=== PATIENT | male | born 1980 | race Caucasian/White ===

== ENCOUNTER 2022-10-08 08:01 | Emergency (ER) | payer BC ==
[2022-10-08] MEDS ORDERED: Sodium Chloride 0.9% 2.5 ML Syringe FLUSH PRN (08:28)
[2022-10-08] MEDS ORDERED: Metoclopramide 10 MG/2 ML SDV IVPUSH ONE (08:28)
[2022-10-08] MEDS ORDERED: Acetaminophen 325 MG Tab PO ONE (08:28)
[2022-10-08] MEDS ORDERED: Sodium Chloride 0.9% 10 ML Syringe FLUSH PRN (08:28)
[2022-10-08] MEDS ORDERED: diphenhydrAMINE 50 MG/ML SDV IVPUSH ONE (08:28)
[2022-10-08 09:00] LABS: BLOOD UREA NITROGEN,BUN 22 mg/dL (7.0-18.0); CHLORIDE,CL 104 mmol/L (98-107); GLUCOSE RANDOM 119 mg/dL (74-106); POTASSIUM,K 3.6 mmol/L (3.5-5.1); SODIUM,NA 139 mmol/L (136-148)
[2022-10-08 09:03] LABS: ESTIMATED GFR 111 mL/min (>60)
[2022-10-08 09:26] LABS: CORONAVIRUS COVID-19 NAA NEGATIVE (NEGATIVE); INFLUENZA A NAA NEGATIVE (NEGATIVE); INFLUENZA B NAA NEGATIVE (NEGATIVE); RESPIRATORY SYNCYTIAL VIR NAA NEGATIVE (NEGATIVE)
[2022-10-08] MEDS ORDERED: Morphine 4 MG/ML Syringe IVPUSH ONE (10:01)
== END 2022-10-08 13:22 ==
LOC: MW.ED 08:01
DX: S06.5XAA Traumatic subdural hemorrhage with loss of consciousness status unknown, initial encounter (principal); Z91.013 Allergy to seafood; Z90.81 Acquired absence of spleen; Z20.822 Contact with and (suspected) exposure to COVID-19; W22.8XXA Striking against or struck by other objects, initial encounter; Y93.71 Activity, boxing
CPT/HCPCS: 0241U; 36415; 70250; 70360; 70450; 71046; 74019; 80053; 85025; 85610; 85730; 96374; 96375; 99291; 99292; A9270; J1200; J2270; J2765; J3490

== ENCOUNTER 2023-08-21 10:01 | Emergency (ER) | payer BC | END 2023-08-21 11:29 | disposition home or self-care (01) | LOC: MW.ED 10:01 | DX: R20.2 Paresthesia of skin (principal) | CPT/HCPCS: 70250; 70250-26; 70360; 70450; 70450-26; 71046; 74019; 99282; 99284 ==

== ENCOUNTER 2023-11-18 17:21 | Emergency (ER) | payer BC ==
[2023-11-18] MEDS: Sodium Chloride 0.9% 500 ML IV SCH (18:11)
[2023-11-18] MEDS: Sodium Chloride 0.9% 2.5 ML Syringe FLUSH PRN (18:13)
[2023-11-18] MEDS: Sodium Chloride 0.9% 10 ML Syringe FLUSH PRN (18:13)
[2023-11-18 18:15] LABS: BASOPHILS ABSOLUTE AUTO 0.12 K/uL (0.00-0.20); BASOPHILS PERCENT AUTO 0.9 % (0.0-1.0); EOSINOPHILS ABSOLUTE AUTO 0.06 K/uL (0.00-0.45); EOSINOPHILS PERCENT AUTO 0.4 % (0.0-6.0); HEMATOCRIT 39.7 % (42.0-52.0); HEMOGLOBIN 13.9 g/dL (14.0-18.0); IMMATURE GRAN ABSOLUTE AUTO 0.05 K/uL (0.00-0.05); IMMATURE GRAN PERCENT AUTO 0.4 % (0.0-0.4); LYMPHOCYTES ABSOLUTE AUTO 1.25 K/uL (1.00-4.80); MEAN CORPUSCULAR HEMOGLOBIN 31.8 pg (28.0-32.0); MEAN CORPUSCULAR VOLUME 90.8 fL (83.0-99.0); MEAN PLATELET VOLUME 9.2 fL (9.4-12.4); MONOCYTES ABSOLUTE AUTO 1.16 K/uL (0.00-0.80); MONOCYTES PERCENT AUTO 8.4 % (0.0-8.0); NEUTROPHILS ABSOLUTE AUTO 11.23 K/uL (1.80-7.70); NEUTROPHILS PERCENT AUTO 80.9 % (41.0-71.0); PLATELET COUNT,PLT 369 K/uL (150-400); RED BLOOD CELL COUNT 4.37 M/uL (4.52-5.90); WHITE BLOOD CELL COUNT,WBC 13.87 K/uL (3.9-11.3)
[2023-11-18 18:50] LABS: ALBUMIN 3.9 g/dL (3.4-5.0); BILIRUBIN TOTAL 0.4 mg/dL (0.2-1.0); CALCIUM 9.3 mg/dL (8.5-10.1); CREATININE 1.2 mg/dL (0.8-1.3); EST CRCL DRUG DOSING (CG) 78.38 mL/min; MAGNESIUM 2.2 mg/dL (1.8-2.4); POTASSIUM,K 3.8 mmol/L (3.5-5.1)
[2023-11-18 19:48] LABS: AMPHETAMINES SCREEN, URINE NEGATIVE (CUTOFF=500); BARBITURATE SCREEN,URINE NEGATIVE (CUTOFF=200); BENZODIAZEPINES SCREEN,URINE NEGATIVE (CUTOFF=150); BUPRENORPHINE SCREEN,URINE NEGATIVE (CUTOFF=10); METHADONE SCREEN, URINE NEGATIVE (CUTOFF=200); METHAMPHETAMINES SCREEN, URINE NEGATIVE (CUTOFF=500); OXYCODONE SCREEN,URINE NEGATIVE (CUT0FF=100); PCP SCREEN,URINE NEGATIVE (CUTOFF=25); THC SCREEN,URINE 20 NG/ML PRESUMPTIVE POSITIVE (CUTOFF=50)
[2023-11-21 22:02] LABS: KEPPRA 29 ug/mL (10-40)
== END 2023-11-18 21:57 | disposition home or self-care (01) ==
LOC: MW.ED 17:21
DX: R56.9 Unspecified convulsions (principal); Z87.820 Personal history of traumatic brain injury; Z98.2 Presence of cerebrospinal fluid drainage device; Z91.013 Allergy to seafood; Z79.899 Other long term (current) drug therapy
CPT/HCPCS: 36415; 70450; 80053; 80177; 80305; 82550; 82947; 83735; 84484; 85025; 93005; 96365; 96376; 99284; J1953; J3490; J7040; J7060; 93010; 99283

== ENCOUNTER 2024-04-23 14:49 | Emergency (ER) | payer MEDICAID | END 2024-04-23 17:03 | disposition home or self-care (01) | LOC: MW.ED 14:49 | DX: S52.501A Unspecified fracture of the lower end of right radius, initial encounter for closed fracture (principal); Z79.899 Other long term (current) drug therapy; Z91.013 Allergy to seafood; W18.01XA Striking against sports equipment with subsequent fall, initial encounter; Y93.B3 Activity, free weights | CPT/HCPCS: 29105; 73090-26-RT; 73090-RT; 73110-26-RT; 73110-RT; 99283; 99283-25 ==

== ENCOUNTER 2024-05-05 08:32 | Day surgery (SDC) | payer MEDICAID ==
[~2024-05-05 08:32] MED LIST: ceFAZolin 2 GM in Sodium Chloride 0.9% 50 ML IV ONE
[2024-05-05] MEDS ORDERED: Midazolam 1 MG/ML 2 ML SDV ONE (09:27)
[2024-05-05] MEDS ORDERED: Ropivacaine 0.5% 5 MG/ML 30 ML SDV ONE (09:37)
[2024-05-05] MEDS ORDERED: dexmedeTOMIDine HCl 200 MCG/2 ML SDV ONE (09:39)
[2024-05-05] MEDS: Lactated Ringers 1,000 ML IV SCH (09:44)
[2024-05-05] MEDS ORDERED: Bupivacaine 0.25% 30 ML SDV ONE (09:44)
[2024-05-05] MEDS ORDERED: ceFAZolin 2 GM Vial ONE (11:28)
== END 2024-05-05 14:19 | disposition home or self-care (01) ==
LOC: MW.SDS 08:32
PROVIDERS: ATTEND Orthopaedic Surgery
DX: S52.551A Other extraarticular fracture of lower end of right radius, initial encounter for closed fracture (principal); Z91.013 Allergy to seafood; Z79.899 Other long term (current) drug therapy; Z87.891 Personal history of nicotine dependence
CPT/HCPCS: 25607; 76000; J0690; J2250; J2795; J7120; C1713; J0131; J0665; J3490